=== PATIENT | male | born 1990 | race Hispanic/Latino ===

== ENCOUNTER 2018-05-08 20:16 | Emergency (ER) | payer OTHER ==
[~2018-05-08] VITALS: Ht 193 cm; Wt 158.8 kg
--- NOTE | 2018-05-08 23:08 | Diagnostic Imaging Report ---
EXAM: CT ABDOMEN AND PELVIS without IV CONTRAST INDICATION: Hematuria, suprapubic pain COMPARISON: None TECHNIQUE: The abdomen and pelvis were scanned using a multidetector helical scanner. Coronal and sagittal reformations were obtained. Dose modulation, iterative reconstruction, and/or weight based adjustment of the mA/kV was utilized to reduce the radiation dose to as low as reasonably achievable. Renal stone protocol performed. IV Contrast: None Oral Contrast: None CTDIvol has been reviewed. It is below the limits set by the Radiation Protocol Committee (RPC). FINDINGS: LOWER THORAX: No consolidations LIVER: No masses BILIARY: Normal gallbladder. No ductal dilation. SPLEEN: No masses PANCREAS: No masses ADRENALS: No nodules RIGHT KIDNEY: No nephroureterolithiasis or hydronephrosis. LEFT KIDNEY: There is a thin 8 x 2 mm left distal ureteral stone approximately 2 cm from the ureterovesicular junction not resulting in obstruction. GI TRACT: No wall thickening or obstruction. Surgical changes consistent with gastric sleeve. Normal appendix. VESSELS: Unremarkable PERITONEUM/RETROPERITONEUM: No free air or fluid LYMPH NODES: No lymphadenopathy REPRODUCTIVE ORGANS: The prostate is within normal size limits. There is a partially visualized well-circumscribed approximately 3 cm density in the right inguinal canal, that could represent the testicle. BLADDER: Decompressed SOFT TISSUES: Small left fat-containing inguinal hernia. BONES: No suspicious bone lesions. IMPRESSION: There is a thin 8 x 2 mm stone in the distal left ureter, approximately 2 cm from the ureterovesicular junction not resulting in hydronephrosis. Incidentally, there is a partially visualized soft tissue density in the right inguinal canal, most likely the testicle. Signed by: Dr. Emely Meehan M.D. on 05/08/2018 11:04 PM
== END 2018-05-08 20:52 | disposition home or self-care (01) ==
LOC: FSED 20:16
DX: R31.0 Gross hematuria (principal); N20.0 Calculus of kidney
CPT/HCPCS: 74176; 99283